=== PATIENT | female | born 1955 | race Caucasian/White ===

== ENCOUNTER 2020-01-01 13:37 | Outpatient (CLI) | payer OTHER, SELFPAY ==
--- NOTE | ~2020-01-01 | MMUS_ITS ---
EXAMINATION: MM diagnostic ana maria LT w brionna, US breast LT limited HISTORY: Palpable left breast lump TECHNIQUE: Additional 3-D tomosynthesis images of the left breast were performed and synthetic 2-D im ages were generated. CAD analysis was submitted and interpreted. High resolution left breast ultrasou nd was performed. COMPARISON: Comparison to multiple prior studies sequentially, with oldest reviewed study dated 06/03. FINDINGS: MAMMOGRAPHIC FINDINGS: Breast composed of scattered areas of fibroglandular density. There are no suspicious masses, calcifi cations or architectural distortion in the left breast to suggest malignancy. No significant interval change. ULTRASOUND: At 7:00, 4.5 cm from the nipple in the area of palpable concern there is a 3 mm cyst. No suspicious m asses to suggest malignancy. IMPRESSION: 1. No mammographic or sonographic evidence for malignancy in the left breast. 2. Routine yearly screening mammogram and regular clinical breast examination are recommended. BI-RADS Category 2: Benign finding(s). Reviewed, dictated and finalized at location A. NG WORKER IMPRESSION: 1. No mammographic or sonographic evidence for malignancy in the left breast. 2. Routine yearly screening mammogram and regular clinical breast examination a re recommended. BI-RADS Category 2: Benign finding(s).
== END 2020-01-01 13:38 | disposition home or self-care (01) ==
PROVIDERS: PCP Family Medicine; Visit Provider Obstetrics & Gynecology
DX: N60.02 Solitary cyst of left breast (principal)
CPT/HCPCS: 76642; 77061; 77065; G0279

== ENCOUNTER 2021-09-17 08:47 | Outpatient (CLI) | payer MEDICARE, SELFPAY ==
--- NOTE | ~2021-09-17 | MM_ITS ---
EXAMINATION: MM screening ana maria BI w brionna HISTORY: Screening mammogram TECHNIQUE: Craniocaudal and mediolateral oblique 3-D tomosynthesis images were obtained and synthetic 2-D images were generated. CAD analysis was submitted and interpreted. COMPARISON: 01/01/2020 diagnostic left mammogram and limited left breast ultrasound 06/12/2019 bilateral screening mammogram 06/10/2018 left diagnostic mammogram and limited left breast ultrasound 06/07/2018 bilateral screening mammogram BREAST PARENCHYMAL COMPOSITION: There are scattered areas of fibroglandular density. FINDINGS: Stable mild fibroglandular asymmetry. Stable bilateral axillary tail small circumscribed be nign-appearing lymph node. There is no evidence of suspicious mass, calcification, or architectural d istortion to suggest malignancy in either breast. There has been no suspicious interval change. IMPRESSION: 1. No mammographic evidence of malignancy. 2. Recommend routine screening mammography in one year. BI-RADS Category 2: Benign finding(s). Reviewed, dictated and finalized at location A. NG UPHOLSTERER
--- NOTE | ~2021-09-17 | DEXA_ITS ---
Bone Density Report Name: Monica Brooks Age: 65 Sex: Female Ethnicity: White Date of : 1955 Indication: osteopenia; postmenopausal Referring Provider: DEBORAH SOLIMAN Study: Bone densitometry was performed. Exam Date: September 17, 2021 Accession number: [id number] Bone Density: Region BMD T-score Z-score Classification AP Spine (L1-L4) 0.883 -1.5 0.3 Osteopenia Femoral Neck (Left) 0.664 -1.7 -0.1 Osteopenia Total Hip (Left) 0.959 0.1 1.4 Normal Total Hip Bilateral Avg 0.899 -0.4 0.9 Normal Femoral Neck (Right) 0.607 -2.2 -0.6 Osteopenia Total Hip (Right) 0.839 -0.8 0.4 Normal World Health Organization criteria for BMD impression classify patients as: Normal (T-score at or above -1.0), Osteopenia (T-score between -1.0 and -2.5), or Osteoporosis (T-score at or below -2.5). 10-year Fracture Risk(1): Major Osteoporotic Fracture 11% Hip Fracture 1.9% Reported Risk Factors: [place] (), Neck BMD=0.607, BMI=28.3 (1) FRAX(R) Version 3.08. Fracture probability calculated for an untreated patient. Fracture probability may be lower if the patient has received treatment. Previous Exams: Region Exam Age BMD T-score BMD Change BMD Change Date g/cm2 vs Baseline vs Previous AP Spine(L1-L4) 09/17/2021 65 0.883 -1.5 -0.014(-1.6%)# -0.005(-0.5%) 06/07/2018 62 0.888 -1.4 -0.010(-1.1%)# 0.000(0.0%) 10/26/2016 61 0.888 -1.4 -0.010(-1.1%)# 0.019(2.2%)# 05/25/2014 58 0.868 -1.6 -0.029(-3.3%)# 0.033(4.0%)* 05/16/2012 56 0.835 -1.9 -0.063(-7.0%)# -0.063(-7.0%)# 04/14/2010 54 0.897 -1.4 Total Hip(Left) 09/17/2021 65 0.959 0.1 0.140(17.0%)# 0.057(6.4%)* 06/07/2018 62 0.902 -0.3 0.082(10.0%)# 0.048(5.6%)* 10/26/2016 61 0.854 -0.7 0.034(4.2%)# 0.003(0.3%)# 05/25/2014 58 0.851 -0.7 0.031(3.8%)# -0.013(-1.5%) 05/16/2012 56 0.864 -0.6 0.044(5.4%)# 0.044(5.4%)# 04/14/2010 54 0.820 -1.0 Total Hip(Right) 09/17/2021 65 0.839 -0.8 0.081(10.7%)# -0.006(-0.7%) 06/07/2018 62 0.845 -0.8 0.087(11.5%)# 0.043(5.4%)* 10/26/2016 61 0.801 -1.2 0.044(5.8%)# -0.024(-2.9%)# 05/25/2014 58 0.825 -1.0 0.067(8.9%)# 0.006(0.7%) 05/16/2012 56 0.819 -1.0 0.061(8.1%)# 0.061(8.1%)# 04/14/2010 54 0.758 -1.5 *Denotes significance at 95% confidence level, LSC for AP Spine = 0.022 g/cm2, LSC for Total Hip = 0.027 g/cm2 Clinical Information Provided by Patient: Has used the follow
== END 2021-09-17 08:48 | disposition home or self-care (01) ==
LOC: ANHIMG 08:52
PROVIDERS: PCP Family Medicine; Visit Provider Obstetrics & Gynecology
DX: Z12.31 Encounter for screening mammogram for malignant neoplasm of breast (principal); M85.88 Other specified disorders of bone density and structure, other site; Z78.0 Asymptomatic menopausal state; M85.852 Other specified disorders of bone density and structure, left thigh; M85.851 Other specified disorders of bone density and structure, right thigh
CPT/HCPCS: 77063; 77067; 77080

== ENCOUNTER 2022-09-23 10:06 | Outpatient (CLI) | payer MEDICARE, SELFPAY ==
--- NOTE | ~2022-09-23 | MM_ITS ---
EXAMINATION: MM screening ana maria BI w brionna HISTORY: Screening TECHNIQUE: Craniocaudal and mediolateral oblique 3-D tomosynthesis images were obtained and synthetic 2-D images were generated. CAD analysis was submitted and interpreted. COMPARISON: Comparison to multiple prior studies sequentially, with oldest reviewed study dated 06/03. BREAST PARENCHYMAL COMPOSITION: There are scattered areas of fibroglandular density. FINDINGS: There is no evidence of suspicious mass, calcification, or architectural distortion to sugg est malignancy in either breast. There has been no suspicious interval change. IMPRESSION: 1. No mammographic evidence of malignancy. 2. Recommend routine screening mammography in one year. BI-RADS Category 1: Negative Reviewed, dictated and finalized at location A. ILE SUPERVISOR
== END 2022-09-23 10:07 | disposition home or self-care (01) ==
PROVIDERS: PCP Family Medicine; Visit Provider Nurse Practitioner
DX: Z12.31 Encounter for screening mammogram for malignant neoplasm of breast (principal)
CPT/HCPCS: 77063; 77067

== ENCOUNTER 2023-10-07 09:39 | Outpatient (CLI) | payer MEDICARE, SELFPAY ==
--- NOTE | ~2023-10-07 | DEXA_ITS ---
Bone Density Report Name: JENI CLEANING Age: 67 Sex: Female Ethnicity: White Date of : 1955 Indication: osteopenia; postmenopausal Referring Provider: PHIL, MARIAN Study: Bone densitometry was performed. Exam Date: October 07, 2023 Accession number: [id number] Bone Density: Region BMD T-score Z-score Classification AP Spine(L1-L4) 0.905 -1.3 0.7 Osteopenia Femoral Neck (Left) 0.628 -2.0 -0.3 Osteopenia Total Hip (Left) 0.908 -0.3 1.1 Normal Femoral Neck (Right) 0.615 -2.1 -0.4 Osteopenia Total Hip (Right) 0.845 -0.8 0.6 Normal Total Hip Mean 0.877 -0.6 0.9 Normal World Health Organization criteria for BMD impression classify patients as: Normal (T-score at or above -1.0), Osteopenia (T-score between -1.0 and -2.5), or Osteoporosis (T-score at or below -2.5). 10-year Fracture Risk(1): Major Osteoporotic Fracture 12% Hip Fracture 2.0% Reported Risk Factors: [place] (), Neck BMD=0.615, BMI=27.3 (1) FRAX(R) Version 3.08. Fracture probability calculated for an untreated patient. Fracture probability may be lower if the patient has received treatment. Previous Exams: Region Exam Age BMD T-score BMD Change BMD Change Date g/cm2 vs Baseline vs Previous AP Spine (L1-L4) 10/07/2023 67 0.905 -1.3 0.037 (4.2%)# 0.022 (2.4%) 09/17/2021 65 0.883 -1.5 0.015 (1.7%)# -0.005 (-0.5%) 06/07/2018 62 0.888 -1.4 0.020 (2.3%)# 0.000 (0.0%) 10/26/2016 61 0.888 -1.4 0.019 (2.2%)# 0.019 (2.2%)# 05/25/2014 58 0.868 -1.6 Total Hip(Left) 10/07/2023 67 0.908 -0.3 0.057 (6.7%)# -0.051 (-5.3%) 09/17/2021 65 0.959 0.1 0.108 (12.7%)# 0.057 (6.4%)* 06/07/2018 62 0.902 -0.3 0.051 (6.0%)# 0.048 (5.6%)* 10/26/2016 61 0.854 -0.7 0.003 (0.3%)# 0.003 (0.3%)# 05/25/2014 58 0.851 -0.7 Total Hip(Right) 10/07/2023 67 0.845 -0.8 0.020 (2.4%)# 0.006 (0.8%) 09/17/2021 65 0.839 -0.8 0.014 (1.7%)# -0.006 (-0.7%) 06/07/2018 62 0.845 -0.8 0.020 (2.4%)# 0.043 (5.4%)* 10/26/2016 61 0.801 -1.2 -0.024 (-2.9%) -0.024 (-2.9%) 05/25/2014 58 0.825 -1.0 *Denotes significance at 95% confidence level, LSC for AP Spine = 0.022 g/cm2, LSC for Total Hip = 0.027 g/cm2 # Denotes dissimilar scan types or analysis methods Clinical Information Provided by Patient: Has used the following medications: Vitamin D, Calcium Patient maximum height was 59 Menopause Age: 49 Drinks caffeinated beverages O
--- NOTE | ~2023-10-07 | MM_ITS ---
EXAMINATION: MM screening ana maria BI w brionna HISTORY: Screening mammogram TECHNIQUE: Craniocaudal and mediolateral oblique 3-D tomosynthesis images were obtained and synthetic 2-D images were generated. CAD analysis was submitted and interpreted. COMPARISON: 09/23/2022, 09/17/2021 bilateral screening mammogram examinations BREAST PARENCHYMAL COMPOSITION: There are scattered areas of fibroglandular density. FINDINGS: There is no evidence of suspicious mass, calcification, or architectural distortion to sugg est malignancy in either breast. There has been no suspicious interval change. IMPRESSION: 1. No mammographic evidence of malignancy. 2. Recommend routine screening mammography in one year. BI-RADS Category 1: Negative Reviewed, dictated and finalized at location A. O CONSULTANT
== END 2023-10-07 09:40 | disposition home or self-care (01) ==
LOC: ANHIMG 09:44
PROVIDERS: PCP Family Medicine; Visit Provider Nurse Practitioner
DX: Z12.31 Encounter for screening mammogram for malignant neoplasm of breast (principal); M85.88 Other specified disorders of bone density and structure, other site; M85.852 Other specified disorders of bone density and structure, left thigh; M85.851 Other specified disorders of bone density and structure, right thigh
CPT/HCPCS: 77063; 77067; 77080

== ENCOUNTER 2024-11-23 11:22 | Outpatient (CLI) | payer MEDICARE, SELFPAY ==
--- NOTE | ~2024-11-23 | MMUS_ITS ---
EXAMINATION: MM diagnostic ana maria BI w brionna, US breast LT limited HISTORY: Left breast lump TECHNIQUE: 3-D tomosynthesis images of the breasts were performed and synthetic 2-D images were gener ated. CAD analysis was submitted and interpreted. High resolution limited left breast ultrasound was performed. COMPARISON: 10/07/2023, 09/23/2022, 09/17/2021 BREAST PARENCHYMAL COMPOSITION:Not Dense. There are scattered areas of fibroglandular density. FINDINGS: MAMMOGRAPHIC FINDINGS: Parenchymal pattern of both breasts is unchanged. No suspicious mass lesion or distortion is seen. St able small rounded mass noted the outer, upper left breast. No suspicious microcalcifications. ULTRASOUND: At the 9:00 position right breast, 6 cm from the nipple, there is a 4 x 4 by 4 mm round circumscribed mass, probable mild posterior through transmission. At the 9:00 position right breast, 3 cm from the nipple, there is an additional 4 x 4 by 4 mm round cyst with posterior through transmission. IMPRESSION: 2 subcentimeter cysts at the outer right breast, as detailed above. No evidence for malignancy. BI-RADS Category 2: Benign finding(s). Reviewed, dictated and finalized at location M. L DESIGNER IMPRESSION: 2 subcentimeter cysts at the outer right breast, as detailed above. No evidence for malignancy. BI-RADS Category 2: Benign finding(s).
== END 2024-11-23 11:23 | disposition home or self-care (01) ==
PROVIDERS: PCP Family Medicine; Visit Provider Nurse Practitioner
DX: N60.01 Solitary cyst of right breast (principal); N63.20 Unspecified lump in the left breast, unspecified quadrant
CPT/HCPCS: 76642; 77062; 77066; G0279

== ENCOUNTER 2025-05-25 00:21 | Day surgery (SDC) | payer MEDICARE, SELFPAY ==
[2025-05-09 10:51] VITALS: BMI 27.6
--- OUTSIDE RECORDS SUMMARY | 2025-05-25 00:24 | XMS_ITS | Referral Summary ---
Author Organization [facility] [address] [facility] [address] Address [address] [place] [address] Care Team Providers Care Public Relations Counselor Name Role Phone Yimi Sandoval MD Primary Care Provider [phone] Encounters Date Type Department Care Team Description 05/23/2025 9:30 AM CDT Office Visit [facility] [address] [place] [address] Vivek Park MD Coronary artery disease involving eastern shoshone coronary artery of eastern shoshone heart without angina pectoris (Primary Dx); Hyperlipidemia associated with type 2 diabetes mellitus (HCC); Overweight (BMI 25.0-29.9); Hypothyroidism, unspecified type from Last 3 Months Allergies No known active allergies Medications estrogens, conjugated, (PREMARIN) vaginal cream insert (1G) by vaginal route every day cyclically, 3 weeks on and 1 week off 0 2 Active cholecalciferol (cholecalciferol) 1,000 unit tablet take 1 by Oral route every day 0 2 Active multivitamin capsule Take one by mouth one time per day 0 0 8 Active calcium carbonate (CALCIUM 600) 1,500 mg (600 mg of elemental calcium) tablet take 1 by Oral route 2 times every day 0 0 6 Active aspirin 81 mg tablet Take one by mouth one time per day 0 0 9 Active levothyroxine (SYNTHROID) 75 mcg tablet Take 1 tablet (75 mcg total) by mouth fiberglass tube molder before breakfast Active cyanocobalamin (Vitamin B-12) 100 mcg tabletIndications: Prevention of Vitamin B12 Deficiency Take 1 tablet (100 mcg total) by mouth daily Active ramipriL (ALTACE) 5 mg capsuleIndications :Atherosclerosis of eastern shoshone coronary artery of eastern shoshone heart without angina pectoris Take 1 capsule (5 mg total) by mouth daily 90 capsule 3 4 Active ezetimibe (ZETIA) 10 mg tabletIndications: Atherosclerosis of eastern shoshone coronary artery of eastern shoshone heart without angina pectoris,Multiple- type hyperlipidemia Take 1 tablet (10 mg total) by mouth daily 90 tablet 3 4 Active rosuvastatin (CRESTOR) 40 mg tabletIndications: Multiple-type hyperlipidemia,Ath erosclerosis of eastern shoshone coronary artery of eastern shoshone heart without angina pectoris TAKE 1 TABLET BY MOUTH EVERY DAY 90 tablet 5 Active metFORMIN (GLUCOPHAGE) 500 mg tablet Take 1 tablet (500 mg total) by mouth 2 (two) times a day with meals 5 Active Active Problems Problem Noted Date Diagnosed Date Hypothyroidism 05/23/2025 Pre-diabetes 02/16/2023 Elevated hemoglobin A1c 01/20/2021 Coronary artery disease invo lving eastern shoshone coronary artery of eastern shoshone heart without angina pectoris 01/09/2020 Overweight (BMI 25.0-29.9) 12/16/2017 Hyperlipidemia associated with type 2 diabetes [place] 10/22/2016 Overview (02/12/2017): Mixed hyperlipidemia Presence of stent in coronary artery 08/12/2015 Overview (02/12/2017): Stented coronary artery Resolved Problems Problem Noted Date Diagnosed Date Resolved Date Hyperlipidemia 08/07/2013 12/26/2018 Overview (02/12/2017): Hyperlipidemia Atherosclerosis of coronary artery 08/07/2013 01/09/2020 Overview (02/12/2017): Coronary artery disease Social History Tobacco Use Types Packs/Day Years Used Date Smoking Tobacco: Never Smokeless Tobacco: Never Tobacco Cessation:Counseling Given: Not Answered Alcohol Use Standard Drinks/Week Comments No 0 (1 standard drink = 0.6 oz pur e alcohol) Comments Unknown Sex and Gender Information Value Date Recorded Sex Assigned at Not on file 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 Gender Identity Not on file Sexual Orientation Not on file Last Filed Vital Signs Vital Sign Reading Time Taken Comments Blood Pressure 110/54 05/23/2025 9:34 AM CDT Pulse 80 05/23/2025 9:34 AM CDT Temperature - - Respiratory Rate - - Oxygen Saturation 98% 05/23/2025 9:34 AM CDT Inhaled Oxygen Concentration - - Weight 60.8 kg (134 lb) 05/23/2025 9:34 AM CDT Height 149.9 cm (4' 11) 05/23/2025 9:34 AM CDT Body Mass Index 27.06 05/23/2025 9:34 AM CDT Plan of Treatment Not on file Procedures Procedure Name Priority Date/Time Associated Diagnosis Comments POCT LIPID PANEL Routine 05/23/2025 10:2 3 AM CDT Coronary artery disease involving eastern shoshone coronary artery of eastern shoshone heart without angina pectoris Hyperlipidemia associated with type 2 diabetes mellitus (HCC) ECG 12-LEAD Routine 05/23/2025 10:11 AM CDT Coronary artery disease involving eastern shoshone coronary artery of eastern shoshone heart without angina pectoris COMPREHENSIVE METABOLIC PANEL Routine 04/29/2018 7:57 AM CDT from Last 3 Months or Most Recently Relevant to Health Maintenance Results * POCT lipid panel (05/23/2025 10:23 AM CDT) Cholesterol, POC 106 <200 MG/DL HDL, POC 58 >=40 mg/dL Triglycerides, POC 79 <=149 mg/dL LDL Cholesterol POC 32 <=129 mg/dL Chol/HDL Ratio, POC 0.5 NONE Non-HDL Cholesterol, POC 48 NONE mg/dL Cholesterol Total, POC 106 30 - 199 mg/dL Capillary blood 05/23/2025 1 0:23 AM CDT Vivek Park MD POINT OF CARE TEST ORDERA BLES Final Result * ECG 12 lead (05/23/2025 10:11 AM CDT) Vivek Park MD ECG ORDERABLES Edited Re sult - Final * (ABNORMAL) Comprehensive metabolic panel (04/29/2018 7:57 AM CDT) Glucose 94 65 - 99 mg/dL [facility] [place] Comment: Fasting reference interval BUN 21 7 - 25 mg/dL [facility] [place] Creatinine 1.01(H) 0.50 - 0.99 mg/dL [facility] [place] Comment: For patients >49 years of age, the reference limit for Creatinine is approximately 13% higher for people identified as -Cuban. eGFR NON-AFR. SAUDI ARABIAN 60 > OR = 60 mL/min/1. 73m2 [facility] [place] EGFR 69 > OR = 60 mL/min/1. 73m2 [facility] [place] BUN/creat ratio 21 6 - 22 (calc) [facility] [place] Sodium 141 135 - 146 mmol/L [facility] [place] Potassium, pl 4.3 3.5 - 5.3 mmol/L [facility] [place] Chloride 106 98 - 110 mmol/L [facility] [place] CO2 25 20 - 31 mmol/L [facility] [place] Calcium 9.6 8.6 - 10.4 mg/dL [facility] [place] Protein, sr 6.8 6.1 - 8.1 g/dL [facility] [place] Albumin 4.3 3.6 - 5.1 g/dL [facility] [place] GLOBULIN 2.5 1.9 - 3.7 g/dL (calc) [facility] [place] Alb/glob ratio 1.7 1.0 - 2.5 (calc) [facility] [place] Bilirubin, total 0.6 0.2 - 1.2 mg/dL [facility] [place] Alk phos 58 33 - 130 U/L [facility] [place] AST 23 10 - 35 U/L [facility] [place] ALT (SGPT) 21 6 - 29 U/L [facility] [place] 04/29/2018 7:57 AM CDT 04/29/2018 7:58 AM CDT Narrative [facility] 04/30/2018 2:04 AM CDT FASTING:YES FASTING: YES Resulting Agency Comment Performing Organization Information: Site ID: [place] Name: [facility] Address: [address] [place], [place] [address] [id number] Director: Surinder Soni D.O., MPH Danica Morales MD LAB BLOOD ORDERABLES Final Result [facility] from Last 3 Months or Most Recently Relevant to Health Maintenance [place] [address] [address] [place] [address] MEDICARE Care Teams Public Relations Counselor Relationship Specialty Start Date End Date Yimi Sandoval MD [address] [address] PCP - General 02/05/17
--- OUTSIDE RECORDS SUMMARY | 2025-05-25 00:24 | XMS_ITS | Clinical Summary ---
Author Organization [facility] [address] [facility] [address] Address [address] [place] [address] Care Team Providers Care Cephalometric Analyst Name Role Phone Yimi Sandoval MD Primary Care Provider [phone] Allergies No known active allergies Medications estrogens, [...] 1 tablet (75 mcg total) by mouth assistant professor of business before breakfast Active cyanocobalamin (Vitamin B-12) 100 mcg tabletIndications: Prevention of Vitamin B12 Deficiency Take 1 tablet (100 mcg total) by mouth daily Active ramipriL (ALTACE) 5 mg capsuleIndications :Atherosclerosis of [place] coronary artery of [place] heart without angina pectoris Take 1 capsule (5 mg total) by mouth daily 90 capsule 3 4 Active ezetimibe (ZETIA) 10 mg tabletIndications: Atherosclerosis of [place] coronary artery of [place] heart without angina pectoris,Multiple- type hyperlipidemia Take 1 tablet (10 mg total) by mouth daily 90 tablet 3 4 Active rosuvastatin (CRESTOR) 40 mg tabletIndications: Multiple-type hyperlipidemia,Ath erosclerosis of [place] coronary artery of [place] heart without angina pectoris TAKE 1 TABLET BY MOUTH EVERY DAY 90 tablet 5 Active metFORMIN (GLUCOPHAGE) 500 mg tablet Take 1 tablet (500 mg total) by mouth 2 (two) times a day with meals 5 Active Active Problems Problem Noted Date Diagnosed Date Hypothyroidism 05/23/2025 Pre-diabetes 02/16/2023 Elevated hemoglobin A1c 01/20/2021 Coronary artery disease invo lving sk[place] coronary artery of [place] heart without angina pectoris 01/09/2020 Overweight (BMI 25.0-29.9) 12/16/2017 Hyperlipidemia associated with type 2 diabetes m ellitus 10/22/2016 Overview (02/12/2017): Mixed hyperlipidemia Presence of stent in coronary artery 08/12/2015 Overview (02/12/2017): Stented coronary artery Resolved Problems Problem Noted Date Diagnosed Date Resolved Date Hyperlipidemia 08/07/2013 12/26/2018 Overview (02/12/2017): Hyperlipidemia Atherosclerosis of coronary artery 08/07/2013 01/09/2020 Overview (02/12/2017): Coronary artery disease Encounters Date Type Department Care Team Description 05/23/2025 9:30 AM CDT Office Visit [facility] [address] [place] [address] Vivek Park MD Coronary artery disease involving sk[place] coronary artery of [place] heart without angina pectoris (Primary Dx); Hyperlipidemia associated with type 2 diabetes mellitus (HCC); Overweight (BMI 25.0-29.9); Hypothyroidism, unspecified type from Last 3 Months Medical History Medical History Date Comments Hypothyroidism Hypothyroidism Adiposity Obesity Family History Medical History Relation Name Comments Abdominal Aortic Aneurysm Father Diabetes type II Father Diabetes Ty pe II; PAD Father aortic valve disease Father Other Mother strokes, chf, f ailure to thrive; Cause of : strokes, chf, failure to thrive Relation Name Status Comments Father Mother (Age 68) Social History Tobacco Use Types Packs/Day Years Used Date Smoking Tobacco: Never Smokeless Tobacco: Never Tobacco Cessation:Counseling Given: Not Answered Alcohol Use Standard Drinks/Week Comments No 0 (1 standard drink = 0.6 oz pur e alcohol) Comments Unknown Sex and Gender Information Value Date Recorded Sex Assigned at Not on file 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 Gender Identity Not on file Sexual Orientation Not on file Obstetrics History Last Filed Vital Signs Vital Sign Reading [...] 05/23/2025 9:34 AM CDT Plan of Treatment Health Maintenance Due Date Last Done Comments Albumin Creatinine Ratio, Urine 1955 Breast Cancer Screening-Mammogram 1955 Colon Cancer Screening-Colonoscopy 1955 Depression Screening 1955 Fall Risk Assessment 1955 Hemoglobin A1C 1955 Hepatitis C Screening 1955 Osteoporosis Screening-Bone Density Scan 1955 Dilated Eye Exam 1955 Foot Exam 1955 Hepatitis B Screening 1973 Pneumococcal vaccine 65+ (1 of 2 - PCV) 1974 eGFR 04/29/2019 04/29/2018 Well Visit 65+ 2020 Influenza Vaccine (#1) 2025 9, 08/28/2018, 08/18/2017, Additional history exists Lipid Panel 05/23/2026 05/23/2025, 02/06, 01/04/2023, Additional history exists DTaP/Tdap/Td Vaccine (2 - Td or Tdap) 10/11/2028 10/11/2018 Zoster Vaccine Completed 12/28/2018, 10/20/2018 Procedures Procedure Name Priority Date/Time Associated Diagnosis Comments POCT LIPID PANEL Routine 05/23/2025 10:2 3 AM CDT Coronary artery disease involving [place] coronary artery of [place] heart without angina pectoris Hyperlipidemia associated with type 2 diabetes mellitus (HCC) ECG 12-LEAD Routine 05/23/2025 10:11 AM CDT Coronary artery disease involving [place] coronary artery of [place] heart without angina pectoris COMPREHENSIVE METABOLIC PANEL [...] CDT) Glucose 94 65 - 99 mg/dL [facility] [place] Comment: Fasting reference interval BUN 21 7 - 25 mg/dL [facility] [place] Creatinine 1.01(H) 0.50 - 0.99 mg/dL [facility] [place] Comment: For patients >49 years of age, the reference limit for Creatinine is approximately 13% higher for people identified as -Peruvian. eGFR NON-AFR. BOLIVIAN 60 > OR = 60 mL/min/1. 73m2 [facility] [place] EGFR 69 > OR = 60 mL/min/1. 73m2 [facility] [place] BUN/creat ratio 21 6 - 22 (calc) [facility] [place] Sodium 141 135 - 146 mmol/L [facility] [place] Potassium, pl 4.3 3.5 - 5.3 mmol/L [facility] [place] Chloride 106 98 - 110 mmol/L [facility] [place] CO2 25 20 - 31 mmol/L [facility] [place] Calcium 9.6 8.6 - 10.4 mg/dL [facility] [place] Protein, sr 6.8 6.1 - 8.1 g/dL [facility] [place] Albumin 4.3 3.6 - 5.1 g/dL [facility] [place] GLOBULIN 2.5 1.9 - 3.7 g/dL (calc) [facility] [place] Alb/glob ratio 1.7 1.0 - 2.5 (calc) [facility] [place] Bilirubin, total 0.6 0.2 - 1.2 mg/dL [facility] [place] Alk phos 58 33 - 130 U/L [facility] [place] AST 23 10 - 35 U/L [facility] [place] ALT (SGPT) 21 6 - 29 U/L [facility] [place] 04/29/2018 7:57 AM CDT 04/29/2018 7:58 AM CDT Narrative [facility] - 04/30/2018 2:04 AM CDT FASTING:YES FASTING: YES Resulting Agency Comment Performing Organization Information: Site ID: [id number] Name: Dorota Mccoy Address: [address] [place] [address] [facility] [place]en [address] Director: Surinder Soni D.O., MPH Danica Morales MD LAB BLOOD ORDERABLES Final Result [facility] Garcia from Last 3 Months or Most Recently Relevant to Health Maintenance Insurance [employer] MEDICARE [facility] MEDICARE Care Teams Cephalometric Analyst Relationship Specialty Start Date End Date Yimi Sandoval MD [address] [address] PCP - General 02/05/17
[2025-05-25 06:22] VITALS: BP 128/53; PULSE 90; RESP 16; TEMP 36.5; O2SAT 98; BMI 26.1
[2025-05-25] MEDS: LACTATED RINGERS 1,000 ML 150 ML IV CONT (06:47)
--- NOTE | 2025-05-25 07:04 | P.PNAN_ITS ---
Anes - Initial Pre Proc Eval Procedure: Operation Date: 05/25/25 07:30 Proposed Procedures p Screening Colonoscopy - Raza Coombs MD Date/Time: 05/25/25 07:04 Surgeon: Raza Coombs MD Pre Op Diagnosis: Encounter for screening for malignant neoplasm of Patient Data Age: 69 Gender: F Height: 1.5 m Weight: 58.7 kg Last Vital Signs Temp 36.5 C 05/25/25 06:22 Pulse 90 05/25/25 06:22 Resp 16 05/25/25 06:22 BP 128/53 L 05/25/25 06:22 Pulse Ox 98 05/25/25 06:22 O2 Del Method Room Air 05/25/25 06:22 Allergies Allergy/AdvReac Type Severity Reaction Status Date / Time No Known Allergies Allergy Unknown Verified 05/09/25 11:08 Home Medications ?Medication ?Instructions ?Recorded ?Confirmed ?Type aspirin 81 mg tablet,delayed 81 mg PO DAILY 10/04/19 05/25/25 History release (Adult Aspirin Regimen) conjugated estrogens 0.625 mg/gram 0.625 mg vaginal DAILY 10/04/19 05/25/25 History vaginal cream (Premarin) cholecalciferol (vitamin D3) 25 1,000 unit PO DAILY 11/28/19 05/25/25 History mcg (1,000 unit) capsule ezetimibe 10 mg tablet 10 mg PO DAILY #90 tabs 12/26/20 05/25/25 Rx ramipril 5 mg capsule 5 mg PO DAILY #90 caps 12/26/20 05/25/25 Rx rosuvastatin 40 mg tablet 40 mg PO DAILY #90 tabs 12/26/20 05/25/25 Rx calcium carbonate (Calcium 600) 600 mg PO BID 02/10/24 05/25/25 History cyanocobalamin (vitamin B-12) 1,000 mcg PO DAILY 02/10/24 05/25/25 History 1,000 mcg tablet metformin 500 mg tablet 500 mg PO BIDWMEAL #180 tabs 10/12/24 05/25/25 Rx levothyroxine 75 mcg tablet 75 mcg PO DAILY #90 tabs 01/02/25 05/25/25 Rx Laboratory Tests 05/25/25 06:44 POC Capillary Glucose 85 mg/dl (65-105) Patient hx anesthesia problems: none Family hx anesthesia problems: none Results Review: All pre-operative results and documents have been reviewed as part of the pre- operative evaluation. [facility] Past Medical History Medical History (Updated 12/05/24 @ 11:36 by Yimi Sandoval MD) Protein in urine (09/25/24) trace protein on urinalysis on 09/25/2024. Type 2 diabetes mellitus with kidney complication, without long-term current use of insulin fasting glucose 93 with hemoglobin A1c 6.6 on 12/22/2021. glucose 93 with hemoglobin A1c 6.4 on 06/30/2022. Fasting glucose 87 with hemoglobin A1c 6.4 on 07/26/2023. hemoglobin A1c 6.9 on 01/27/2024. glucose 97 with hemoglobin A1c 6.7 with urine microalbumin ratio of 40 and GFR 58 on 09/25/2024. At low risk for fall Osteopenia after menopause DEXA scan 09/22/2021 with T-score -1.5 spine, -1.7 left hip, -2.2 right hip. DEXA 10/07/2023 with T-score -1.3 spine, -2.0 left hip, -0.8 right hip. Breast cancer screening by mammogram normal mammogram 10/07/2023. Diagnostic mammogram and breast ultrasound 11/23/2024 Was negative with 2 small 4 x 4 mm cysts in the right breast. Renal insufficiency (04/07/23) BUN 17, creatinine 1.14 with GFR 53 on 04/07/2023 With patient on metformin 500 mg once daily and recent severe gastroenteritis. BUN 13, creatinine 0.88 with GFR 72 on 07/26/2023. BUN 19, creatinine 1.05 with GFR 58 on 09/25/2024. BMI 26.0-26.9,adult Overweight (BMI 25.0-29.9) BMI 27.0-27.9,adult BMI 28.0-28.9,adult Abnormal fasting glucose fasting glucose 93 with hemoglobin A1c 6.6 on 12/22/2021. glucose 93 with hemoglobin A1c 6.4 on 06/30/2022. Fasting glucose 87 with hemoglobin A1c 6.4 on 07/26/2023. hemoglobin A1c 6.9 on 01/27/2024. Colon cancer screening normal colonoscopy Dr. Avelar on 11/28/2014 with recheck 10 year Body mass index (bmi) 29.0-29.9, adult (05/24/19) Family History Family History (Updated 05/24/19 @ 09:55 by DOCTOR UNKNOWN) Mother Family history of tuberculosis Family history of hypercholesterolemia, Onset Age: 79 Family history of rheumatoid arthritis Father Diabetes mellitus, Onset Age: 85 Family history of hypercholesterolemia, Onset Age: 85 Family history of cardiovascular disease Family history of kidney disease, Onset Age: 85 Sibling Patient's brother is in good health Grandparent Family history of cardiovascular disease Social History Social History Smoking status: Never smoker Alcohol intake: never Substance use: never Substance use type: does not use Lack of Transportation: No Lack of Food: Sometimes True Current Housing: I Have Housing Concerned About Future Housing: No Difficulty Paying Gas/Electric Bills: No Difficulty Paying for Meds: No Currently Unemployed: No Education: Bachelor's Degree Difficulty w/ Childcare or Family Care: No Living arrangements: with family Spiritual care concerns: No Anes - Eval Final PreProcedure Day of Procedure 05/25/25 07:04 Patient weight: overweight Heart: regular rate and rhythm Lungs: clear to auscultation Airway: Mallampati scale class II Neurological: alert and oriented Last oral intake: >/= 8 hours ASA classification: III Emergent: no Anesthetic plan: proceed Anesthesia type and monitoring: general GIVS and standard monitoring Results Review: All pre-operative results and documents have been reviewed as part of the pre- operative evaluation. Informed Consent: The patient's anesthetic plan and its attendant risks and benefits were discussed with the patient/family/POA. Questions were solicited and answers provided to the satisfaction of the patient/family/POA.
--- NOTE | 2025-05-25 07:25 | PM.HPGS ---
History of Present Illness History of Present Illness Consent: Risks, benefits, and alternatives have been discussed and questions answered. Patient agrees to proceed with procedure. Chief complaint: Encounter for screening for malignant neoplasm of Narrative: Monica Brooks is a 69 year old female here for screening colonoscopy, last one 10 years ago Review of Systems Review of Systems: All systems reviewed & are unremarkable except as noted in HPI and below PMFSH Past Medical History Medical History (Updated 12/05/24 @ 11:36 by Yimi Sandoval MD) Protein in urine (09/25/24) trace protein on urinalysis on 09/25/2024. Type 2 diabetes mellitus with kidney complication, without long-term current use of insulin fasting glucose 93 with hemoglobin A1c 6.6 on 12/22/2021. glucose 93 with hemoglobin A1c 6.4 on 06/30/2022. Fasting glucose 87 with hemoglobin A1c 6.4 on 07/26/2023. hemoglobin A1c 6.9 on 01/27/2024. glucose 97 with hemoglobin A1c 6.7 with urine microalbumin ratio of 40 and GFR 58 on 09/25/2024. At low risk for fall Osteopenia after menopause DEXA scan 09/22/2021 with T-score -1.5 spine, -1.7 left hip, -2.2 right hip. DEXA 10/07/2023 with T-score -1.3 spine, -2.0 left hip, -0.8 right hip. Breast cancer screening by mammogram normal mammogram 10/07/2023. Diagnostic mammogram and breast ultrasound 11/23/2024 Was negative with 2 small 4 x 4 mm cysts in the right breast. Renal insufficiency (04/07/23) BUN 17, creatinine 1.14 with GFR 53 on 04/07/2023 With patient on metformin 500 mg once daily and recent severe gastroenteritis. BUN 13, creatinine 0.88 with GFR 72 on 07/26/2023. BUN 19, creatinine 1.05 with GFR 58 on 09/25/2024. BMI 26.0-26.9,adult Overweight (BMI 25.0-29.9) BMI 27.0-27.9,adult BMI 28.0-28.9,adult Abnormal fasting glucose fasting glucose 93 with hemoglobin A1c 6.6 on 12/22/2021. glucose 93 with hemoglobin A1c 6.4 on 06/30/2022. Fasting glucose 87 with hemoglobin A1c 6.4 on 07/26/2023. hemoglobin A1c 6.9 on 01/27/2024. Colon cancer screening normal colonoscopy Dr. Avelar on 11/28/2014 with recheck 10 year Body mass index (bmi) 29.0-29.9, adult (05/24/19) Family History Family History (Updated 05/24/19 @ 09:55 by DOCTOR UNKNOWN) Mother Family history of tuberculosis Family history of hypercholesterolemia, Onset Age: 79 Family history of rheumatoid arthritis Father Diabetes mellitus, Onset Age: 85 Family history of hypercholesterolemia, Onset Age: 85 Family history of cardiovascular disease Family history of kidney disease, Onset Age: 85 Sibling Patient's brother is in good health Grandparent Family history of cardiovascular disease Social History Social History Smoking status: Never smoker Alcohol intake: never Substance use: never Substance use type: does not use Lack of Transportation: No Lack of Food: Sometimes True Current Housing: I Have Housing Concerned About Future Housing: No Difficulty Paying Gas/Electric Bills: No Difficulty Paying for Meds: No Currently Unemployed: No Education: Bachelor's Degree Difficulty w/ Childcare or Family Care: No Living arrangements: with family Spiritual care concerns: No Meds Home Medications and Allergies Home Medications ?Medication ?Instructions ?Recorded ?Confirmed ?Type aspirin 81 mg tablet,delayed 81 mg PO DAILY 10/04/19 05/25/25 History release (Adult Aspirin Regimen) conjugated estrogens 0.625 mg/gram 0.625 mg vaginal DAILY 10/04/19 05/25/25 History vaginal cream (Premarin) cholecalciferol (vitamin D3) 25 1,000 unit PO DAILY 11/28/19 05/25/25 History mcg (1,000 unit) capsule ezetimibe 10 mg tablet 10 mg PO DAILY #90 tabs 12/26/20 05/25/25 Rx ramipril 5 mg capsule 5 mg PO DAILY #90 caps 12/26/20 05/25/25 Rx rosuvastatin 40 mg tablet 40 mg PO DAILY #90 tabs 12/26/20 05/25/25 Rx calcium carbonate (Calcium 600) 600 mg PO BID 02/10/24 05/25/25 History cyanocobalamin (vitamin B-12) 1,000 mcg PO DAILY 02/10/24 05/25/25 History 1,000 mcg tablet metformin 500 mg tablet 500 mg PO BIDWMEAL #180 tabs 10/12/24 05/25/25 Rx levothyroxine 75 mcg tablet 75 mcg PO DAILY #90 tabs 01/02/25 05/25/25 Rx Allergies Allergy/AdvReac Type Severity Reaction Status Date / Time No Known Allergies Allergy Unknown Verified 05/09/25 11:08 Vital Signs Vital Signs - 24 hr 05/25/25 06:22 Temperature 97.7 F Pulse Rate 90 Respiratory Rate 16 Blood Pressure 128/53 L Pulse Oximetry 98 Oxygen Delivery Room Air Exam Const: General: comfortable and no acute distress HENMT: Face/Nose/Sinus: Normal nares present Eyes: General: appearance normal, both eyes and all related structures Neck: Neck: no JVD Resp: Auscultation: clear to auscultation bilaterally Cardio: Rate: regular rate Rhythm: regular rhythm GI: Inspection: non-distended GI Palp: Yes Soft to palpation Skin: General skin exam: normal color Neuro: General: gait normal Speech: normal speech Extrem: General: normal to inspection Psych: Mental Status: mental status grossly normal Assessment and Plan Assessment and plan (1) Colon cancer screening: Code(s): Z12.11 - Encounter for screening for malignant neoplasm of colon Status: Acute Assessment and Plan: colonoscopy
[2025-05-25 07:44] VITALS: BP 99/48; PULSE 73; RESP 19; O2SAT 97
[2025-05-25 07:54] VITALS: BP 99/52; PULSE 73; RESP 19; O2SAT 96
[2025-05-25 08:04] VITALS: BP 118/53; PULSE 69; RESP 17; O2SAT 100
== END 2025-05-25 08:21 | disposition home or self-care (01) ==
PROVIDERS: PCP Family Medicine; Referring Provider Family Medicine; Visit Provider Internal Medicine Gastroenterology
PROC: 0DJD8ZZ Inspection of Lower Intestinal Tract, Via Natural or Artificial Opening Endoscopic (ICD-10-PCS; CPT 45378; principal; 2025-05-25 07:30)
DX: Z12.11 Encounter for screening for malignant neoplasm of colon (principal); K57.30 Diverticulosis of large intestine without perforation or abscess without bleeding; E11.29 Type 2 diabetes mellitus with other diabetic kidney complication; N28.9 Disorder of kidney and ureter, unspecified; Z79.84 Long term (current) use of oral hypoglycemic drugs
CPT/HCPCS: G0121; 82948; J2003; J2704; J7120